=== PATIENT | male | born 1960 | race American Indian/Alaskan Native ===

== ENCOUNTER 2017-02-26 23:21 | Emergency (ER) | payer SELFPAY ==
[2017-02-27 00:33] VITALS: BP 136/80
== END 2017-02-27 00:29 | disposition left against medical advice (07) ==
LOC: ED 23:21
DX: R21 Rash and other nonspecific skin eruption (principal); Z53.21 Procedure and treatment not carried out due to patient leaving prior to being seen by health care provider

== ENCOUNTER 2017-02-27 12:30 | Emergency (ER) | payer OTHER ==
[2017-02-27] MEDS ORDERED: VISTARIL PO ONE (20:19)
[2017-02-27] MEDS ORDERED: VISTARIL ONE (20:26)
--- NOTE | 2017-02-27 21:19 | Emergency Department Report ---
HPI - General Chief Complaint: Skin Rash Time Seen by Provider: 02/27/17 19:37 - HPI HPI: 57-year-old male presents today complaining of a skin rash 2 weeks. Patient states that he was seen at an urgent care 2 weeks ago and was prescribed prednisone pack and triamcinolone cream. Patient reports no symptomatic relief. He states that the rash is worsening and spreading to his legs now. Positive for pruritus. Admits to change in soap 2 weeks ago, which she has not discontinued. Denies fever, chills, nausea, vomiting, chest pain, shortness of breath, abdominal pain. Denies any drainage or bleeding. ED Past Medical Hx - Past Medical History Previous Medical History?: No - Surgical History Past Surgical History?: Yes Hx Appendectomy: Yes - Social History Smoking Status: Never Smoker Substance Use Type: None - Medications Home Medications: Home Medications Medication Instructions Recorded Confirmed Last Taken Type Butalbit/Acetamin/Caff/Codeine 1 cap PO Q6HR PRN #20 cap 09/12/15 Unknown Rx [Fioricet/Codeine 17-293-90-30] Ibuprofen [Motrin 800 MG tab] 800 mg PO Q8HR PRN #30 tablet 09/12/15 Unknown Rx hydrOXYzine PAMOATE [Vistaril] 25 mg PO Q6HR PRN #20 capsule 02/27/17 Unknown Rx predniSONE [Deltasone] 20 mg PO QDAY 5 Days 02/27/17 Unknown Rx ED Review of Systems ROS: Stated complaint: RASH ON ARMS AND STOMACH Other details as noted in HPI Constitutional: denies: chills, fever, malaise Eyes: denies: eye pain ENT: denies: ear pain, throat pain, congestion Respiratory: denies: cough, shortness of breath, wheezing Cardiovascular: denies: chest pain, palpitations Endocrine: no symptoms reported Gastrointestinal: denies: abdominal pain, nausea, vomiting Skin: rash, pruritus Neurological: denies: headache, weakness, numbness, paresthesias Physical Exam - Physical Exam Vital Signs: Vital Signs 02/27/17 15:55 Temperature 97.5 F L Pulse Rate 59 L Respiratory 18 Rate Blood Pressure 154/76 O2 Sat by Pulse 99 Oximetry Physical Exam: GENERAL: The patient is well-developed and well-nourished. Patient is in NAD. SKIN: Maculopapular rash noted throughout upper extremities, neck and trunk. No signs of infection. No bleeding or drainage. HEAD: Normocephalic. Atraumatic. THROAT: No erythema, swelling or exudates. Teeth and gingiva in good general condition. NECK: Supple, nontender, without lymphadenopathy. No meningitic signs are noted. CHEST/LUNGS: Clear to auscultation throughout. HEART/CARDIOVASCULAR: Regular rate and rhythm. No murmurs, rubs or gallops. ABDOMEN: Abdomen is soft, nontender. Bowel sounds normoactive. No guarding or rebound tenderness. EXTREMITIES: No cyanosis, clubbing or edema. Peripheral pulses intact. Capillary refill less than 2 seconds. NEURO: Alert and oriented x 3. Normal gait. ED Course Vital Signs 02/27/17 15:55 Temperature 97.5 F L Pulse Rate 59 L Respiratory 18 Rate Blood Pressure 154/76 O2 Sat by Pulse 99 Oximetry ED Medical Decision Making - Lab Data Vital Signs 02/27/17 02/27/17 15:55 21:29 Temperature 97.5 F L Pulse Rate 59 L 65 Respiratory 18 18 Rate Blood Pressure 154/76 143/93 O2 Sat by Pulse 99 99 Oximetry - Medical Decision Making 57-year-old male presents today with a rash to his upper extremities and trunk 2 weeks. Patient has been treated with prednisone pack and triamcinolone 2 weeks ago without significant relief. Patient was given hydroxyzine and Solu- Medrol today and reports some symptomatic relief. Patient is advised to discontinue use of the nail detergents, cleansers, moisturizers. Patient has been provided with a referral for music specialist and assessor to follow -up with. Patient is in no acute distress at this time. He will be discharged home and is encouraged to follow up with a primary care provider. He will be sent home on prednisone and hydroxyzine and is encouraged to return to the emergency room for any worsening symptoms. Critical care attestation.: If time is entered above; I have spent that time in minutes in the direct care of this critically ill patient, excluding procedure time. ED Disposition Clinical Impression: Rash and nonspecific skin eruption, Pruritus and related conditions Disposition: - TO HOME OR SELFCARE Is pt being admited?: No Does the pt Need Aspirin: No Condition: Stable Instructions: Urticaria (ED), Allergies (ED) Additional Instructions: Follow-up with primary care provider. Return to emergency department if symptoms worsen. Prescriptions: hydrOXYzine PAMOATE [Vistaril] 25 mg PO Q6HR PRN #20 capsule PRN Reason: Allergic Reaction predniSONE [Deltasone] 20 mg PO QDAY 5 Days Referrals: OJ RAMÍREZ MD [Primary Care Provider] - 3-5 Days LUDMILA ENAMORADO MD [Referring] - 3-5 Days STAN GRAY MD [Referring] - 3-5 Days Forms: Work/School Release Form(ED) Time of Disposition: 21:19
[2017-02-27 21:34] VITALS: BP 143/93
== END 2017-02-27 21:34 | disposition home or self-care (01) ==
LOC: ED 12:30
DX: L29.9 Pruritus, unspecified (principal); R21 Rash and other nonspecific skin eruption
CPT/HCPCS: 96372; 99282; J2930; Q0177

== ENCOUNTER 2018-12-19 12:13 | Emergency (ER) | payer OTHER ==
[2018-12-19 12:24] VITALS: BP 173/98
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
[2018-12-19] MEDS ORDERED: IBUPROFEN PO ONE (13:44)
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
== END 2018-12-19 14:40 | disposition home or self-care (01) ==
LOC: ED 12:13
DX: S46.912A Strain of unspecified muscle, fascia and tendon at shoulder and upper arm level, left arm, initial encounter (principal); S13.4XXA Sprain of ligaments of cervical spine, initial encounter; Z90.49 Acquired absence of other specified parts of digestive tract; Z79.899 Other long term (current) drug therapy; V49.49XA Driver injured in collision with other motor vehicles in traffic accident, initial encounter; Y93.89 Activity, other specified; Y92.410 Unspecified street and highway as the place of occurrence of the external cause; Y99.8 Other external cause status
CPT/HCPCS: 72040

== ENCOUNTER 2019-07-24 01:06 | Emergency (ER) | payer OTHER ==
[2019-07-24 01:36] VITALS: BP 156/90
--- NOTE | 2019-07-24 03:09 | XRay Report ---
CHEST 1 VIEW INDICATION / CLINICAL INFORMATION: Chest Pain. COMPARISON: None available. FINDINGS: SUPPORT DEVICES: None. HEART / MEDIASTINUM: No significant abnormality. LUNGS / PLEURA: No significant pulmonary or pleural abnormality. No pneumothorax. ADDITIONAL FINDINGS: No significant additional findings. IMPRESSION: 1. No acute findings. Signer Name: Zeinab Richardson MD Signed: 07/24/2019 3:05 AM Workstation Name: [id number]
[2019-07-24 03:19] LABS: Basophils # (Auto) 0.1 K/mm3 (0.0-0.1); Basophils % (Auto) 1.2 % (0.0-1.8); Eosinophils # (Auto) 0.2 K/mm3 (0.0-0.4); Eosinophils % (Auto) 3.1 % (0.0-4.3); Hematocrit 39.9 % (35.5-45.6); Lymphocytes # (Auto) 1.8 K/mm3 (1.2-5.4); Lymphocytes % (Auto) 26.6 % (13.4-35.0); Mean Corpuscular HGB Conc 35 % (32-34); Mean Corpuscular Volume 93 fl (84-94); Monocytes # (Auto) 0.4 K/mm3 (0.0-0.8); Monocytes % (Auto) 5.6 % (0.0-7.3); Platelet Count 243 K/mm3 (140-440)
[2019-07-24 03:42] LABS: BUN/Creatinine Ratio 10; Blood Urea Nitrogen 12 mg/dL (9-20); Calcium 9.8 mg/dL (8.4-10.2); Hemolysis Index 4
[2019-07-24] MEDS ORDERED: DICYCLOMINE 20 MG TAB PO ONE (08:14)
[2019-07-24] MEDS ORDERED: HYDROcodone/ACETAMINOPHEN 10-325MG TAB PO ONE (08:14)
--- NOTE | 2019-07-24 09:10 | Emergency Department Report ---
ED Chest Pain HPI - General Chief Complaint: Chest Pain Stated Complaint: CHEST PAIN Time Seen by Provider: 07/24/19 08:14 Source: patient Mode of arrival: Ambulatory Limitations: No Limitations - History of Present Illness Initial Comments: This is a 59-year-old male nontoxic, well nourished in appearance, no acute signs of distress presents to the ED with c/o of right sided chest pain x1 day. Patient denies any radiation of pain. Stated started to have some nausea with burping sensation. Patient stated that symptoms started after eating and felt a burning sharp pains to the right chest area and midsternum. Patient denies any upper respiratory symptoms. Patient denies any shortness of breath, hemoptysis, fever, chills, nausea, vomiting, headache, stiff neck, numbness, tingling, abdominal pain. Patient denies pleuritic chest pain. Patient denies any recent travels or long car rides. Patient denies any recent surgeries or any sick con tacts. Patient denies any drug allergies. Patient denies any significant PMH. MD Complaint: chest pain -: days(s) (1) Pain Location: substernal, right chest Pain Radiation: none Severity: mild Severity scale (0 -10): 3 Quality: sharp, other (burning sensation) Improves With: nothing Worsens With: nothing re: nausea. denies: vomting, diaphoresis, dyspnea, sense of impending doom Other Symptoms: burping. denies: cough, fever, syncope, rash, acid taste in mouth, palpitations Aspirin use within the Past 7 Days: (0) No - Related Data On Oral Contraceptives: No Previous Rx's Medication Instructions Recorded Last Taken Type Butalbit/Acetamin/Caff/Codeine 1 cap PO Q6HR PRN #20 cap 09/12/15 Unknown Rx [Fioricet/Codeine [id number]] Ibuprofen [Motrin 800 MG tab] 800 mg PO Q8HR PRN #30 tablet 09/12/15 Unknown Rx hydrOXYzine PAMOATE [Vistaril] 25 mg PO Q6HR PRN #20 capsule 02/27/17 Unknown Rx predniSONE [Deltasone] 20 mg PO QDAY 5 Days tab 02/27/17 Unknown Rx Cyclobenzaprine [Flexeril] 10 mg PO QHS PRN #10 tablet 12/19/18 Unknown Rx Ibuprofen [Motrin] 600 mg PO Q8H PRN #20 tablet 12/19/18 Unknown Rx Acetaminophen/Codeine [Tylenol 1 tab PO Q6H PRN #12 tab 07/24/19 Unknown Rx /Codeine # 3 tab] Allergies Allergy/AdvReac Type Severity Reaction Status Date / Time No Known Allergies Allergy Unverified 09/12/15 10:38 Heart Score - HEART Score History: Slightly suspicious EKG: Normal Age: < 45 Risk factors: No known risk factors Troponin: < normal limit HEART Score: 0 ED Review of Systems ROS: Stated complaint: CHEST PAIN Other details as noted in HPI Constitutional: denies: chills, fever Eyes: denies: eye pain, eye discharge, vision change ENT: denies: ear pain, throat pain Respiratory: denies: cough, shortness of breath, wheezing Cardiovascular: chest pain. denies: palpitations Endocrine: no symptoms reported Gastrointestinal: denies: abdominal pain, nausea, diarrhea Genitourinary: denies: urgency, dysuria Musculoskeletal: denies: back pain, joint swelling, arthralgia Skin: denies: rash, lesions Neurological: denies: headache, weakness, paresthesias Psychiatric: denies: anxiety, depression Hematological/Lymphatic: denies: easy bleeding, easy bruising ED Past Medical Hx - Past Medical History Previous Medical History?: No - Surgical History Past Surgical History?: Yes Hx Appendectomy: Yes - Social History Smoking Status: Former Smoker Substance Use Type: Alcohol - Medications Home Medications: Home Medications Medication Instructions Recorded Confirmed Last Taken Type Butalbit/Acetamin/Caff/Codeine 1 cap PO Q6HR PRN #20 cap 09/12/15 Unknown Rx [Fioricet/Codeine [id number]] Ibuprofen [Motrin 800 MG tab] 800 mg PO Q8HR PRN #30 tablet 09/12/15 Unknown Rx hydrOXYzine PAMOATE [Vistaril] 25 mg PO Q6HR PRN #20 capsule 02/27/17 Unknown Rx predniSONE [Deltasone] 20 mg PO QDAY 5 Days tab 02/27/17 Unknown Rx Cyclobenzaprine [Flexeril] 10 mg PO QHS PRN #10 tablet 12/19/18 Unknown Rx Ibuprofen [Motrin] 600 mg PO Q8H PRN #20 tablet 12/19/18 Unknown Rx Acetaminophen/Codeine [Tylenol 1 tab PO Q6H PRN #12 tab 07/24/19 Unknown Rx /Codeine # 3 tab] ED Physical Exam - General Limitations: No Limitations General appearance: alert, in no apparent distress - Head Head exam: Present: atraumatic, normocephalic - Eye Eye exam: Present: normal appearance - Neck Neck exam: Present: normal inspection, full ROM. Absent: tenderness, meningismus, lymphadenopathy - Respiratory Respiratory exam: Present: normal lung sounds bilaterally. Absent: respiratory distress, wheezes, rales, rhonchi, stridor, chest wall tenderness, accessory muscle use, decreased breath sounds, prolonged expiratory - Cardiovascular Cardiovascular Exam: Present: regular rate, normal rhythm, normal heart sounds. Absent: bradycardia, tachycardia, irregular rhythm, systolic murmur, diastolic murmur, rubs, gallop - GI/Abdominal GI/Abdominal exam: Present: soft, normal bowel sounds. Absent: distended, t enderness, guarding, rebound, rigid, diminished bowel sounds, hyperactive bowel sounds, hypoactive bowel sounds, organomegaly, mass, bruit, pulsatile mass, hernia - Extremities Exam Extremities exam: Present: normal inspection, full ROM - Back Exam Back exam: Present: normal inspection, full ROM. Absent: tenderness, CVA tenderness (R), CVA tenderness (L), muscle spasm, paraspinal tenderness, vertebral tenderness, rash noted - Neurological Exam Neurological exam: Present: alert, oriented X3, normal gait - Psychiatric Psychiatric exam: Present: normal affect, normal mood - Skin Skin exam: Present: warm, dry, intact, normal color. Absent: rash ED Course Vital Signs 07/24/19 07/24/19 07/24/19 01:33 08:22 08:52 Temperature 98.4 F Pulse Rate 65 Respiratory 18 18 18 Rate Blood Pressure 156/90 O2 Sat by Pulse 99 99 Oximetry - Reevaluation(s) Reevaluation #1: 07/24/19 09:14 Patient is speaking in full sentences with no signs of distress noted. SHILOH score - Shiloh Score Age > 65: (0) No Aspirin use within the Past 7 Days: (0) No 3 or more CAD Risk Factors: (0) No 2 or more Angina events in past 24 hrs: (0) No Known CAD with more than 50% Stenosis: (0) No Elevated Cardiac Markers: (0) No ST Deviation Greater than 0.5mm: (0) No SHILOH Score: 0 ED Medical Decision Making - Lab Data Result diagrams: 07/24/19 01:41 07/24/19 01:41 - Medical Decision Making This is a 59-year-old male that presents with atypical chest pain vs. GERD. Patient is stable and was examined by me. SHILOH and HEART score 0 pints. Wells criteria for DVT/SVT/PE 0 points. EKG normal sinus rhythm with no significant changes in ST. Chest xray dictated by the radiologist. PAtient is notified of the Xray report with no questions noted. Labs within normal limits. Negative troponin x2. Patient received [place] and [place] in the ED which stated his symptoms are improving subsided. Patient was instructed to Follow-up with a primary care/metallurgical engineering teacher doctor in 2 days or if symptoms worsen and continue return to emergency room as soon as possible. At time of discharge, the patient does not seem toxic or ill in appearance. No acute signs of distress noted. Patient agrees to discharge treatment plan of care. No further questions noted by the patient. - Differential Diagnosis NSTEMI, STEMI, PE, GERD, atypical chest pain Critical care attestation.: If time is entered above; I have spent that time in minutes in the direct care of this critically ill patient, excluding procedure time. ED Disposition Clinical Impression: Atypical chest pain GERD (gastroesophageal reflux disease) Qualifiers: Esophagitis presence: without esophagitis Qualified Code(s): K21.9 - Gastro-esophageal reflux disease without esophagitis Disposition: - TO HOME OR SELFCARE Is pt being admited?: No Does the pt Need Aspirin: No Condition: Stable Instructions: Chest Pain (ED), Gastroesophageal Reflux in Children (ED) Additional Instructions: Follow-up with a primary care/metallurgical engineering teacher doctor in 2 days or if symptoms worsen and continue return to emergency room as soon as possible. Prescriptions: Acetaminophen/Codeine [Tylenol /Codeine # 3 tab] 1 tab PO Q6H PRN #12 tab PRN Reason: Pain , Severe (7-10) Referrals: [facility] [Outside] - 3-5 Days PRIMARY CAREMD [Primary Care Provider] - 3-5 Days SIDDHARTH CASAS MD [Staff Physician] - 07/26/19 SARAH LEMONS MD [Staff Physician] - 07/26/19 Forms: Work/School Release Form(ED)
== END 2019-07-24 09:36 | disposition home or self-care (01) ==
LOC: ED 01:06
DX: K21.9 Gastro-esophageal reflux disease without esophagitis (principal); R07.89 Other chest pain; Z87.891 Personal history of nicotine dependence; Z79.899 Other long term (current) drug therapy; Z90.49 Acquired absence of other specified parts of digestive tract
CPT/HCPCS: 36415; 71045; 80048; 84484; 85025; 93005; 93010